=== PATIENT | male | born 1945 | race African-American/Black ===

== ENCOUNTER 2019-07-10 14:42 | Inpatient (IN) ==
[2019-07-10] MEDS ORDERED: Ondansetron 4 MG/2 ML VIAL IVP PRN (16:40)
[2019-07-10] MEDS ORDERED: Naloxone 0.4 MG/ML INJ IVP PRN (16:40)
[2019-07-10] MEDS ORDERED: Acetaminophen 325 MG TABLET PO PRN (17:06)
[2019-07-10] MEDS ORDERED: *HR* HYDROcodone/Acet 5/325 mg TABLET PO PRN (17:06)
[2019-07-10] MEDS ORDERED: Aspirin 325 MG TABLET PO ONE (17:23)
[2019-07-10] MEDS: amLODIPine 5 MG TABLET PO SCH (19:47)
[2019-07-10] MEDS ORDERED: hydroCHLOROthiazide 25 MG TABLET PO SCH (21:00)
[2019-07-10] MEDS ORDERED: lisinopriL 20 MG TABLET PO SCH (21:00)
[2019-07-11 00:55] LABS: Basophils # 0.2 K/mcL (0.0-0.2); Eosinophils # 0.2 K/mcL (0.0-0.6); Eosinophils % 1.2 %; Hemoglobin 14.4 g/dL (12.9-16.9); Immature Granulocytes % 2.3 % (0-4); Lymphocytes # 1.6 K/mcL (0.6-4.6); Lymphocytes % 9.9 %; Mean Corpuscular HGB Conc 32.7 g/dL (31.6-35.5); Mean Corpuscular Hemoglobin 31.1 pg (28.0-33.3); Mean Platelet Volume 11.4 fL (9.4-12.4); Monocytes # 1.2 K/mcL (0.0-1.3); Monocytes % 7.1 %; Platelet Count 241 K/mcL (140-400); Red Blood Count 4.63 M/mcL (4.19-5.50); Red Cell Distribution Width 14.2 % (11.5-14.5); Segmented Neutrophils % 78.5 %; White Blood Count 16.6 K/mcL (4.3-11.1)
[2019-07-11 01:09] LABS: Calcium 8.8 mg/dL (8.6-10.3); Magnesium 2.1 mg/dL (1.6-2.6); Potassium 3.6 mEq/L (3.5-5.1)
[2019-07-11] MEDS: amLODIPine 5 MG TABLET PO SCH (07:32)
[2019-07-11] MEDS: hydrALAZINE 25 MG TABLET PO SCH ×4 (10:21→19:44)
[2019-07-11 10:57] LABS: Bilirubin,Urine Negative (Negative); Blood,Urine Moderate (Negative); Clarity,Urine Clear (Clear); Color,Urine Yellow (Yellow); Glucose,Urine (UA) Normal (Normal); Ketones,Urine Negative (Negative); Leukocyte Esterase,Urine Negative (Negative); Nitrite,Urine Negative (Negative); Protein,Urine >=1000 mg/dL (Neg-Trace); Specific Gravity,Urine 1.015 (1.010-1.025); Urobilinogen,Urine Normal (Normal)
[2019-07-11 11:01] LABS: Sodium, Urine 63.4 mEq/L
[2019-07-11 11:13] LABS: Hyaline Casts,Urine None Seen per lpf (None-Few); RBC,Urine 0-3 per hpf (0-3); Renal Epithelial Cells,Urine Few per hpf (None-Few); Squamous Epithelial Cell,Urine Few per lpf (None-Few); Transitional Epi Cells,Urine Few per hpf (None-Few); WBC,Urine 0-3 per hpf (0-3)
[2019-07-11 11:14] LABS: Bacteria,Urine Few per hpf (None-Few)
[2019-07-11] MEDS: Aspirin Enteric Coated 81 MG Tablet PO SCH (12:19)
[2019-07-12 05:48] LABS: Basophils # 0.1 K/mcL (0.0-0.2); Basophils % 0.9 %; Eosinophils # 0.4 K/mcL (0.0-0.6); Eosinophils % 2.2 %; Hematocrit 42.8 % (37.5-50.1); Hemoglobin 14.4 g/dL (12.9-16.9); Lymphocytes # 1.5 K/mcL (0.6-4.6); Lymphocytes % 9.5 %; Mean Corpuscular HGB Conc 33.6 g/dL (31.6-35.5); Mean Corpuscular Hemoglobin 31.5 pg (28.0-33.3); Mean Corpuscular Volume 93.7 fL (83.0-100.0); Mean Platelet Volume 11.6 fL (9.4-12.4); Monocytes # 1.3 K/mcL (0.0-1.3); Monocytes % 8.6 %; Platelet Count 260 K/mcL (140-400); Red Blood Count 4.57 M/mcL (4.19-5.50); Segmented Neutrophils % 76.8 %; White Blood Count 15.7 K/mcL (4.3-11.1)
[2019-07-12 06:01] LABS: Calcium 8.9 mg/dL (8.6-10.3); Potassium 3.4 mEq/L (3.5-5.1)
[2019-07-12] MEDS: Aspirin Enteric Coated 81 MG Tablet PO SCH (07:27)
[2019-07-12] MEDS: hydrALAZINE 25 MG TABLET PO SCH ×4 (07:27→21:41)
[2019-07-12] MEDS: amLODIPine 5 MG TABLET PO SCH (07:29)
[2019-07-12] MEDS: carvediloL 6.25 MG TABLET PO SCH (17:21)
[2019-07-12] MEDS: Spironolactone 25 MG TABLET PO SCH (17:21)
[2019-07-13 05:38] LABS: Basophils # 0.1 K/mcL (0.0-0.2); Basophils % 1.1 %; Eosinophils # 0.5 K/mcL (0.0-0.6); Eosinophils % 3.5 %; Hematocrit 44.8 % (37.5-50.1); Lymphocytes # 1.5 K/mcL (0.6-4.6); Mean Corpuscular HGB Conc 33.5 g/dL (31.6-35.5); Mean Corpuscular Hemoglobin 31.5 pg (28.0-33.3); Mean Corpuscular Volume 94.1 fL (83.0-100.0); Mean Platelet Volume 11.1 fL (9.4-12.4); Monocytes % 7.7 %; Neutrophils # 9.9 K/mcL (1.6-8.9); Platelet Count 254 K/mcL (140-400); Red Blood Count 4.76 M/mcL (4.19-5.50); Red Cell Distribution Width 14.1 % (11.5-14.5); Segmented Neutrophils % 74.7 %; White Blood Count 13.2 K/mcL (4.3-11.1)
[2019-07-13 05:52] LABS: Calcium 9.1 mg/dL (8.6-10.3); Potassium 3.9 mEq/L (3.5-5.1)
[2019-07-13] MEDS: Aspirin Enteric Coated 81 MG Tablet PO SCH (08:25)
[2019-07-13] MEDS: carvediloL 6.25 MG TABLET PO SCH ×2 (08:25→16:53)
[2019-07-13] MEDS: Spironolactone 25 MG TABLET PO SCH (08:25)
[2019-07-13] MEDS: amLODIPine 5 MG TABLET PO SCH (08:25)
[2019-07-13] MEDS: hydrALAZINE 25 MG TABLET PO SCH ×4 (08:26→20:11)
[2019-07-13] MEDS ORDERED: lisinopriL 20 MG TABLET PO SCH (09:00)
[2019-07-13] MEDS: Isosorbide MONOnitrate (24 HR) 30 MG TAB.ER.24H PO SCH (11:25)
[2019-07-14 08:32] LABS: Basophils # 0.1 K/mcL (0.0-0.2); Basophils % 1.2 %; Eosinophils # 0.4 K/mcL (0.0-0.6); Eosinophils % 3.8 %; Hematocrit 41.3 % (37.5-50.1); Hemoglobin 13.4 g/dL (12.9-16.9); Immature Granulocytes % 2.3 % (0-4); Lymphocytes # 1.3 K/mcL (0.6-4.6); Lymphocytes % 11.5 %; Mean Corpuscular HGB Conc 32.4 g/dL (31.6-35.5); Mean Corpuscular Hemoglobin 30.8 pg (28.0-33.3); Mean Corpuscular Volume 94.9 fL (83.0-100.0); Mean Platelet Volume 11.1 fL (9.4-12.4); Monocytes # 1.1 K/mcL (0.0-1.3); Monocytes % 9.4 %; Platelet Count 242 K/mcL (140-400); Red Blood Count 4.35 M/mcL (4.19-5.50); Red Cell Distribution Width 14.2 % (11.5-14.5); Segmented Neutrophils % 71.8 %; White Blood Count 11.2 K/mcL (4.3-11.1)
[2019-07-14 08:51] LABS: Calcium 8.6 mg/dL (8.6-10.3)
[2019-07-14] MEDS: hydrALAZINE 25 MG TABLET PO SCH ×4 (09:41→22:52)
[2019-07-14] MEDS: amLODIPine 5 MG TABLET PO SCH (09:41)
[2019-07-14] MEDS: Aspirin Enteric Coated 81 MG Tablet PO SCH (09:42)
[2019-07-14] MEDS: Spironolactone 25 MG TABLET PO SCH (09:42)
[2019-07-14] MEDS: carvediloL 6.25 MG TABLET PO SCH ×2 (09:42→16:31)
[2019-07-14] MEDS: Isosorbide MONOnitrate (24 HR) 30 MG TAB.ER.24H PO SCH (09:43)
[2019-07-14 13:00] LABS: Bilirubin,Urine Negative (Negative); Blood,Urine Negative (Negative); Clarity,Urine Clear (Clear); Color,Urine Yellow (Yellow); Glucose,Urine (UA) Normal (Normal); Ketones,Urine Negative (Negative); Leukocyte Esterase,Urine Negative (Negative); Nitrite,Urine Negative (Negative); PH,Urine 5.5 pH Units (5.0-8.0); Protein,Urine >=300 mg/dL (Neg-Trace); Specific Gravity,Urine 1.019 (1.010-1.025); Urobilinogen,Urine Normal (Normal)
[2019-07-14 13:02] LABS: Bacteria,Urine None Seen per hpf (None-Few); Hyaline Casts,Urine None Seen per lpf (None-Few); Squamous Epithelial Cell,Urine Many per lpf (None-Few)
[2019-07-14 14:26] LABS: Protein/Creatinine Ratio,Urine 3.15 mg/mg (0.00-0.20); Sodium, Urine 48.6 mEq/L
[2019-07-15 03:08] LABS: Basophils # 0.2 K/mcL (0.0-0.2); Basophils % 1.4 %; Eosinophils # 0.5 K/mcL (0.0-0.6); Eosinophils % 3.9 %; Hematocrit 42.2 % (37.5-50.1); Hemoglobin 13.6 g/dL (12.9-16.9); Immature Granulocytes % 2.6 % (0-4); Lymphocytes # 1.6 K/mcL (0.6-4.6); Lymphocytes % 12.8 %; Mean Corpuscular HGB Conc 32.2 g/dL (31.6-35.5); Mean Corpuscular Hemoglobin 30.7 pg (28.0-33.3); Mean Corpuscular Volume 95.3 fL (83.0-100.0); Mean Platelet Volume 11.4 fL (9.4-12.4); Monocytes # 1.2 K/mcL (0.0-1.3); Neutrophils # 8.4 K/mcL (1.6-8.9); Platelet Count 249 K/mcL (140-400); Red Blood Count 4.43 M/mcL (4.19-5.50); Red Cell Distribution Width 14.1 % (11.5-14.5); Segmented Neutrophils % 69.3 %; White Blood Count 12.2 K/mcL (4.3-11.1)
[2019-07-15 03:25] LABS: Calcium 8.6 mg/dL (8.6-10.3); Potassium 4.3 mEq/L (3.5-5.1)
[2019-07-15] MEDS: Spironolactone 25 MG TABLET PO SCH (09:15)
[2019-07-15] MEDS: carvediloL 6.25 MG TABLET PO SCH ×2 (09:15→17:29)
[2019-07-15] MEDS: hydrALAZINE 25 MG TABLET PO SCH ×4 (09:15→20:01)
[2019-07-15] MEDS: amLODIPine 5 MG TABLET PO SCH (09:15)
[2019-07-15] MEDS: Isosorbide MONOnitrate (24 HR) 30 MG TAB.ER.24H PO SCH (09:15)
[2019-07-15] MEDS: Aspirin Enteric Coated 81 MG Tablet PO SCH (09:15)
[2019-07-15 15:38] LABS: ANA IgG by ELISA NONE DETECTED (None Detected)
[2019-07-15 16:26] LABS: Serine Protease-3 Antibody 1 AU/mL (0-19)
[2019-07-16 04:59] LABS: Calcium 8.7 mg/dL (8.6-10.3); Potassium 4.3 mEq/L (3.5-5.1)
[2019-07-16 08:57] VITALS: BP 163/83
[2019-07-16] MEDS: Isosorbide MONOnitrate (24 HR) 30 MG TAB.ER.24H PO SCH (09:09)
[2019-07-16] MEDS: Spironolactone 25 MG TABLET PO SCH (09:09)
[2019-07-16] MEDS: amLODIPine 5 MG TABLET PO SCH (09:09)
[2019-07-16] MEDS: carvediloL 6.25 MG TABLET PO SCH (09:09)
[2019-07-16] MEDS: Aspirin Enteric Coated 81 MG Tablet PO SCH (09:09)
[2019-07-16] MEDS: hydrALAZINE 25 MG TABLET PO SCH (09:09)
[2019-07-16 12:58] LABS: Kappa Qnt Free Light Chains 114.06 mg/L (3.30-19.40); Lambda Qnt Free Light Chains 49.73 mg/L (5.71-26.30)
[2019-07-17 00:32] LABS: Alpha 2 Globulin (PEP) 0.95 g/dL (0.48-1.05); Beta Globulin (PEP) 0.74 g/dL (0.48-1.10)
[2019-07-17 10:14] LABS: IFE Reflexed NOT DONE
[2019-07-18 03:41] LABS: Urine Collection Volume RANDOM mL
== END 2019-07-16 11:20 | disposition home or self-care (01) | DRG 280 ==
LOC: 2NNU → SUATTDRO 16:19 → 3ANU 07-12 13:40
PROVIDERS: ADMIT Family Medicine; ATTEND Internal Medicine

== ENCOUNTER 2020-06-26 00:17 | Inpatient (IN) ==
[2020-06-26] MEDS ORDERED: Acetaminophen 325 MG TABLET PO PRN (03:15)
[2020-06-26] MEDS ORDERED: Naloxone 0.4 MG/ML INJ IVP PRN (03:15)
[2020-06-26] MEDS ORDERED: Ondansetron 4 MG/2 ML VIAL IVP PRN (03:15)
[2020-06-26] MEDS: MethylPREDNISolone 40 MG/ML VIAL IVP SCH ×3 (05:34→16:53)
[2020-06-26] MEDS: *HR* Heparin 5,000 UNIT/ML VIAL SQ SCH ×2 (05:35→13:18)
[2020-06-26 05:48] LABS: ABG Base Excess -4 mEq/L (-2 to 3); ABG HCO3 22 mEq/L (21-27); ABG Oxygen Saturation 99 % (95-98); ABG PCO2 43 mmHg (35-45); ABG PH 7.33 pH Units (7.32-7.45); ABG PO2 174 mmHg (85-104); ABG TCO2 24 mEq/L (20-26)
[2020-06-26 05:50] LABS: Basophils # 0.1 K/mcL (0.0-0.2); Basophils % 0.5 %; Hematocrit 41.8 % (37.5-50.1); Hemoglobin 12.6 g/dL (12.9-16.9); Immature Granulocytes % 1.6 % (0-4); Lymphocytes # 0.7 K/mcL (0.6-4.6); Lymphocytes % 3.8 %; Mean Corpuscular HGB Conc 30.1 g/dL (31.6-35.5); Mean Corpuscular Volume 99.5 fL (83.0-100.0); Mean Platelet Volume 10.9 fL (9.4-12.4); Monocytes # 0.7 K/mcL (0.0-1.3); Monocytes % 3.8 %; Platelet Count 238 K/mcL (140-400); Segmented Neutrophils % 90.3 %; White Blood Count 18.9 K/mcL (4.3-11.1)
[2020-06-26 05:57] LABS: INR 1.2; Prothrombin Time 14.2 Seconds (9.4-12.1)
[2020-06-26 06:00] LABS: Activated Partial Thrombo Time 33.6 Seconds (26.0-36.0)
[2020-06-26 06:13] LABS: Albumin 3.6 g/dL (3.5-5.7); Albumin/Globulin Ratio 0.9 (1.1-2.2); Bilirubin,Total 0.6 mg/dL (0.3-1.0); Calcium 9.3 mg/dL (8.6-10.3); Chol/HDL Ratio 4.9 (0-4.9); Globulin 3.8 g/dL (2.4-3.5); Magnesium 2.1 mg/dL (1.6-2.6); Phosphorous 5.8 mg/dL (2.7-4.5); Potassium 5.9 mEq/L (3.5-5.1); Total Protein 7.4 g/dL (6.4-8.9)
[2020-06-26] MEDS: Ipratropium/Albuterol Neb 3 ML IH SCH ×6 (07:24→23:15)
[2020-06-26] MEDS ORDERED: cefTRIAXone 1,000 MG in 0.9 % Sodium Chloride Mini Bag 100 ML IVPB SCH (09:00)
[2020-06-26] MEDS ORDERED: Azithromycin 500 MG in 0.9 % Sodium Chloride 250 ML IVPB SCH (09:00)
[2020-06-26] MEDS ORDERED: cefTRIAXone 1,000 MG in Water for inj. (sterile) 10 ML IVP SCH (10:00)
[2020-06-26] MEDS ORDERED: Insulin Human Regular 10 UNIT in 0.9 % Sodium Chloride 10 ML IV ONE (12:38)
[2020-06-26] MEDS ORDERED: *HR* Dextrose 50 % in Water (Syg) 50 ML SYRINGE IVP ONE (12:39)
[2020-06-26] MEDS ORDERED: *HR* Dextrose 50 % in Water (Vial) 50 ML VIAL IVP ONE (13:15)
[2020-06-26] MEDS: Aspirin 81 MG TAB.CHEW PO SCH (13:18)
[2020-06-26 14:10] LABS: Bacteria,Urine Few per hpf (None-Few); Bilirubin,Urine Negative (Negative); Blood,Urine Small (Negative); Clarity,Urine Clear (Clear); Color,Urine Light-Yellow (Yellow); Glucose,Urine (UA) 50 mg/dL (Normal); Ketones,Urine Negative (Negative); Leukocyte Esterase,Urine Negative (Negative); Mucus,Urine Few per lpf (None-Few); Nitrite,Urine Negative (Negative); Protein,Urine >=300 mg/dL (Neg-Trace); RBC,Urine 0-3 per hpf (0-3); Specific Gravity,Urine 1.017 (1.010-1.025); Squamous Epithelial Cell,Urine Few per hpf (None-Few); Urobilinogen,Urine Normal (Normal); WBC,Urine 0-3 per hpf (0-3)
[2020-06-26] MEDS: Doxycycline 100 MG in 0.9 % Sodium Chloride Mini Bag 100 ML IVPB SCH (16:54)
[2020-06-27] MEDS: MethylPREDNISolone 40 MG/ML VIAL IVP SCH ×4 (00:24→17:54)
[2020-06-27] MEDS: *HR* Heparin 5,000 UNIT/ML VIAL SQ SCH ×4 (00:27→21:21)
[2020-06-27 02:35] LABS: Hematocrit 35.9 % (37.5-50.1); Hemoglobin 10.9 g/dL (12.9-16.9); Mean Corpuscular HGB Conc 30.4 g/dL (31.6-35.5); Mean Corpuscular Hemoglobin 29.9 pg (28.0-33.3); Mean Corpuscular Volume 98.4 fL (83.0-100.0); Mean Platelet Volume 11.6 fL (9.4-12.4); Platelet Count 222 K/mcL (140-400); Red Blood Count 3.65 M/mcL (4.19-5.50); Red Cell Distribution Width 13.9 % (11.5-14.5); White Blood Count 18.1 K/mcL (4.3-11.1)
[2020-06-27 03:10] LABS: Calcium 8.7 mg/dL (8.6-10.3); Potassium 5.4 mEq/L (3.5-5.1)
[2020-06-27 03:11] LABS: Albumin 3.3 g/dL (3.5-5.7); Phosphorous 5.5 mg/dL (2.7-4.5)
[2020-06-27] MEDS: Ipratropium/Albuterol Neb 3 ML IH SCH ×3 (03:31→11:16)
[2020-06-27] MEDS: Doxycycline 100 MG in 0.9 % Sodium Chloride Mini Bag 100 ML IVPB SCH ×2 (06:24→17:54)
[2020-06-27] MEDS: Aspirin 81 MG TAB.CHEW PO SCH (09:33)
[2020-06-27] MEDS: cefTRIAXone 2,000 MG in Water for inj. (sterile) 20 ML IVP SCH (09:33)
[2020-06-27 15:20] LABS: Adenovirus Not Detected (Not Detect); Bordetella Pertussis Not Detected (Not Detect); Chlamydophila pneumoniae Not Detected (Not Detect); Coronavirus 229E Not Detected (Not Detect); Coronavirus HKU1 Not Detected (Not Detect); Coronavirus NL63 Not Detected (Not Detect); Coronavirus OC43 Not Detected (Not Detect); Human Metapneumovirus Not Detected (Not Detect); Human Rhinovirus/Enterovirus Not Detected (Not Detect); Influenza A Subtype 2009 H1 Not Detected (Not Detect); Influenza B Not Detected (Not Detect); Mycoplasma pneumoniae Not Detected (Not Detect); Parainfluenza Virus 1 Not Detected (Not Detect); Parainfluenza Virus 2 Not Detected (Not Detect); Parainfluenza Virus 3 Not Detected (Not Detect); Parainfluenza Virus 4 Not Detected (Not Detect); Respiratory Syncytial Virus Not Detected (Not Detect); SARS-CoV-2 Not Detected (Not Detect)
[2020-06-27] MEDS ORDERED: Ipratropium/Albuterol Neb 3 ML IH PRN (15:29)
[2020-06-27] MEDS: carvediloL 6.25 MG TABLET PO SCH (17:54)
[2020-06-28 01:19] LABS: Basophils # 0.1 K/mcL (0.0-0.2); Basophils % 0.3 %; Eosinophils % 0.1 %; Hematocrit 38.7 % (37.5-50.1); Immature Granulocytes % 2.3 % (0-4); Lymphocytes # 0.7 K/mcL (0.6-4.6); Mean Corpuscular Hemoglobin 29.9 pg (28.0-33.3); Mean Corpuscular Volume 96.5 fL (83.0-100.0); Mean Platelet Volume 11.8 fL (9.4-12.4); Monocytes % 4.7 %; Platelet Count 206 K/mcL (140-400); Red Blood Count 4.01 M/mcL (4.19-5.50); Red Cell Distribution Width 13.9 % (11.5-14.5); Segmented Neutrophils % 89.6 %; White Blood Count 21.6 K/mcL (4.3-11.1)
[2020-06-28 01:36] LABS: Calcium 9.3 mg/dL (8.6-10.3); Potassium 5.9 mEq/L (3.5-5.1)
[2020-06-28 01:38] LABS: Neutrophils # 19.4 K/mcL (1.6-8.9)
[2020-06-28 01:39] LABS: Platelet Estimate Normal (Normal)
[2020-06-28] MEDS: MethylPREDNISolone 40 MG/ML VIAL IVP SCH ×2 (05:36→07:31)
[2020-06-28] MEDS: Doxycycline 100 MG in 0.9 % Sodium Chloride Mini Bag 100 ML IVPB SCH (05:37)
[2020-06-28] MEDS: *HR* Heparin 5,000 UNIT/ML VIAL SQ SCH ×3 (05:46→20:11)
[2020-06-28] MEDS: carvediloL 6.25 MG TABLET PO SCH ×2 (08:05→16:03)
[2020-06-28] MEDS ORDERED: predniSONE 20 MG TABLET PO SCH (09:00)
[2020-06-28] MEDS ORDERED: 0.9 % Sodium Chloride 250 ML IVC PRN (09:51)
[2020-06-28] MEDS ORDERED: 0.9 % Sodium Chloride 1,000 ML PRIME SCH (10:00)
[2020-06-28] MEDS ORDERED: 0.9 % Sodium Chloride 1,000 ML ONE (10:04)
[2020-06-28] MEDS: Aspirin 81 MG TAB.CHEW PO SCH (10:45)
[2020-06-28] MEDS: calcitrioL 0.25 MCG CAPSULE PO SCH (10:46)
[2020-06-28] MEDS: cefTRIAXone 2,000 MG in Water for inj. (sterile) 20 ML IVP SCH (10:46)
[2020-06-28 10:47] LABS: Hepatitis B Surface Antibody 3.25 mIU/mL
[2020-06-28] MEDS: amLODIPine 5 MG TABLET PO SCH (10:57)
[2020-06-28 10:58] LABS: Hepatitis B Surface Antigen Nonreactive (Nonreactive)
[2020-06-28] MEDS: Doxycycline 100 MG CAPSULE PO SCH (20:11)
[2020-06-29] MEDS: *HR* Heparin 5,000 UNIT/ML VIAL SQ SCH ×3 (05:08→20:43)
[2020-06-29] MEDS ORDERED: 0.9 % Sodium Chloride 250 ML IVC PRN (06:59)
[2020-06-29 07:20] LABS: Calcium 8.8 mg/dL (8.6-10.3); Phosphorous 4.9 mg/dL (2.7-4.5); Potassium 5.3 mEq/L (3.5-5.1)
[2020-06-29] MEDS ORDERED: predniSONE 20 MG TABLET PO SCH (09:00)
[2020-06-29 10:06] LABS: Basophils # 0.1 K/mcL (0.0-0.2); Basophils % 0.6 %; Eosinophils % 0.1 %; Hematocrit 36.4 % (37.5-50.1); Hemoglobin 11.4 g/dL (12.9-16.9); Immature Granulocytes % 3.6 % (0-4); Lymphocytes # 1.8 K/mcL (0.6-4.6); Lymphocytes % 9.4 %; Mean Corpuscular HGB Conc 31.3 g/dL (31.6-35.5); Mean Corpuscular Hemoglobin 29.8 pg (28.0-33.3); Mean Platelet Volume 11.6 fL (9.4-12.4); Monocytes % 10.5 %; Neutrophils # 14.4 K/mcL (1.6-8.9); Platelet Count 241 K/mcL (140-400); Red Blood Count 3.83 M/mcL (4.19-5.50); Red Cell Distribution Width 13.8 % (11.5-14.5); Segmented Neutrophils % 75.8 %; White Blood Count 19.1 K/mcL (4.3-11.1)
[2020-06-29] MEDS: Aspirin 81 MG TAB.CHEW PO SCH (11:20)
[2020-06-29] MEDS: carvediloL 6.25 MG TABLET PO SCH ×2 (11:21→17:14)
[2020-06-29] MEDS: Doxycycline 100 MG CAPSULE PO SCH ×2 (11:21→20:44)
[2020-06-29] MEDS: cefTRIAXone 2,000 MG in Water for inj. (sterile) 20 ML IVP SCH (11:21)
[2020-06-29] MEDS: calcitrioL 0.25 MCG CAPSULE PO SCH (11:21)
[2020-06-29] MEDS: amLODIPine 5 MG TABLET PO SCH (11:21)
[2020-06-29] MEDS ORDERED: Cefdinir 300 MG CAPSULE PO SCH (21:00)
[2020-06-30 03:48] LABS: Basophils % 0.2 %; Eosinophils % 0.1 %; Hematocrit 38.4 % (37.5-50.1); Immature Granulocytes % 6.3 % (0-4); Lymphocytes # 1.9 K/mcL (0.6-4.6); Lymphocytes % 8.8 %; Mean Corpuscular HGB Conc 31.3 g/dL (31.6-35.5); Mean Corpuscular Hemoglobin 30.2 pg (28.0-33.3); Mean Corpuscular Volume 96.7 fL (83.0-100.0); Mean Platelet Volume 11.3 fL (9.4-12.4); Monocytes # 2.3 K/mcL (0.0-1.3); Monocytes % 10.7 %; Neutrophils # 16.1 K/mcL (1.6-8.9); Platelet Count 255 K/mcL (140-400); Red Blood Count 3.97 M/mcL (4.19-5.50); Red Cell Distribution Width 13.8 % (11.5-14.5); Segmented Neutrophils % 73.9 %; White Blood Count 21.8 K/mcL (4.3-11.1)
[2020-06-30 04:09] LABS: Calcium 8.4 mg/dL (8.6-10.3); Potassium 4.8 mEq/L (3.5-5.1)
[2020-06-30 04:56] LABS: Anisocytosis 1+ (Not Present)
[2020-06-30 04:57] LABS: Platelet Estimate Normal (Normal)
[2020-06-30] MEDS: *HR* Heparin 5,000 UNIT/ML VIAL SQ SCH ×3 (06:33→20:55)
[2020-06-30] MEDS: predniSONE 20 MG TABLET PO SCH (08:10)
[2020-06-30] MEDS: calcitrioL 0.25 MCG CAPSULE PO SCH (08:10)
[2020-06-30] MEDS: Cefdinir 300 MG CAPSULE PO SCH (08:10)
[2020-06-30] MEDS: carvediloL 6.25 MG TABLET PO SCH ×2 (08:10→16:38)
[2020-06-30] MEDS: Aspirin 81 MG TAB.CHEW PO SCH (08:10)
[2020-06-30] MEDS: Doxycycline 100 MG CAPSULE PO SCH ×2 (08:11→20:55)
[2020-06-30] MEDS ORDERED: 0.9 % Sodium Chloride 250 ML IVC PRN (12:02)
[2020-06-30] MEDS: amLODIPine 5 MG TABLET PO SCH (16:38)
[2020-07-01] MEDS: *HR* Heparin 5,000 UNIT/ML VIAL SQ SCH ×3 (05:36→20:06)
[2020-07-01] MEDS: carvediloL 6.25 MG TABLET PO SCH ×2 (08:01→16:34)
[2020-07-01] MEDS: predniSONE 20 MG TABLET PO SCH (08:01)
[2020-07-01] MEDS: Cefdinir 300 MG CAPSULE PO SCH (08:01)
[2020-07-01] MEDS: calcitrioL 0.25 MCG CAPSULE PO SCH (08:01)
[2020-07-01] MEDS: amLODIPine 5 MG TABLET PO SCH (08:01)
[2020-07-01] MEDS: Aspirin 81 MG TAB.CHEW PO SCH (08:01)
[2020-07-01] MEDS: Doxycycline 100 MG CAPSULE PO SCH (08:02)
[2020-07-01 09:45] LABS: Basophils % 0.2 %; Eosinophils # 0.2 K/mcL (0.0-0.6); Eosinophils % 1.1 %; Hematocrit 38.1 % (37.5-50.1); Hemoglobin 11.8 g/dL (12.9-16.9); Immature Granulocytes % 9.9 % (0-4); Lymphocytes # 2.9 K/mcL (0.6-4.6); Lymphocytes % 13.9 %; Mean Corpuscular Hemoglobin 29.8 pg (28.0-33.3); Mean Corpuscular Volume 96.2 fL (83.0-100.0); Mean Platelet Volume 11.7 fL (9.4-12.4); Monocytes # 1.5 K/mcL (0.0-1.3); Monocytes % 7.2 %; Neutrophils # 14.3 K/mcL (1.6-8.9); Nucleated Red Blood Cells 0.1 /100 WBC (0); Platelet Count 233 K/mcL (140-400); Red Blood Count 3.96 M/mcL (4.19-5.50); Red Cell Distribution Width 14.1 % (11.5-14.5); Segmented Neutrophils % 67.7 %; White Blood Count 21.1 K/mcL (4.3-11.1)
[2020-07-01 10:56] LABS: Calcium 8.6 mg/dL (8.6-10.3); Potassium 4.7 mEq/L (3.5-5.1)
[2020-07-01 19:04] LABS: Magnesium 1.7 mg/dL (1.6-2.6); Phosphorous 4.9 mg/dL (2.7-4.5)
[2020-07-01] MEDS: Magnesium Oxide 400 MG TABLET PO SCH (20:05)
[2020-07-02 01:53] LABS: Hematocrit 38.4 % (37.5-50.1); Hemoglobin 12.1 g/dL (12.9-16.9); Mean Corpuscular HGB Conc 31.5 g/dL (31.6-35.5); Mean Corpuscular Hemoglobin 30.3 pg (28.0-33.3); Mean Platelet Volume 11.6 fL (9.4-12.4); Platelet Count 237 K/mcL (140-400); Red Cell Distribution Width 14.1 % (11.5-14.5)
[2020-07-02 02:08] LABS: Lymphocytes # 2.5 K/mcL (0.6-4.6); Monocytes # 0.5 K/mcL (0.0-1.3); Platelet Estimate Normal (Normal); Poikilocytosis 1+ (Not Present)
[2020-07-02 02:09] LABS: Toxic Granulation Present (Not Present)
[2020-07-02 02:11] LABS: Calcium 8.7 mg/dL (8.6-10.3); Magnesium 1.9 mg/dL (1.6-2.6); Potassium 4.8 mEq/L (3.5-5.1)
[2020-07-02] MEDS: *HR* Heparin 5,000 UNIT/ML VIAL SQ SCH ×3 (05:05→21:06)
[2020-07-02] MEDS: Magnesium Oxide 400 MG TABLET PO SCH ×2 (07:57→21:05)
[2020-07-02] MEDS: calcitrioL 0.25 MCG CAPSULE PO SCH (07:57)
[2020-07-02] MEDS: amLODIPine 5 MG TABLET PO SCH (07:57)
[2020-07-02] MEDS: carvediloL 6.25 MG TABLET PO SCH ×2 (07:57→17:51)
[2020-07-02] MEDS: Aspirin 81 MG TAB.CHEW PO SCH (07:57)
[2020-07-02] MEDS: Cefdinir 300 MG CAPSULE PO SCH (07:57)
[2020-07-02] MEDS ORDERED: predniSONE 20 MG TABLET PO SCH (09:00)
[2020-07-02 09:18] LABS: Bacteria,Urine Few per hpf (None-Few); Bilirubin,Urine Negative (Negative); Blood,Urine Trace (Negative); Clarity,Urine Clear (Clear); Color,Urine Light-Yellow (Yellow); Glucose,Urine (UA) Normal (Normal); Ketones,Urine Negative (Negative); Leukocyte Esterase,Urine Negative (Negative); Nitrite,Urine Negative (Negative); PH,Urine 6.5 pH Units (5.0-8.0); Protein,Urine 200 mg/dL (Neg-Trace); RBC,Urine 0-3 per hpf (0-3); Specific Gravity,Urine 1.014 (1.010-1.025); Squamous Epithelial Cell,Urine Few per hpf (None-Few); Urobilinogen,Urine Normal (Normal); WBC,Urine 0-3 per hpf (0-3)
[2020-07-03 02:50] LABS: Hematocrit 37.9 % (37.5-50.1); Mean Corpuscular HGB Conc 31.7 g/dL (31.6-35.5); Mean Corpuscular Hemoglobin 30.2 pg (28.0-33.3); Mean Corpuscular Volume 95.2 fL (83.0-100.0); Mean Platelet Volume 10.9 fL (9.4-12.4); Platelet Count 228 K/mcL (140-400); Red Blood Count 3.98 M/mcL (4.19-5.50); Red Cell Distribution Width 14.1 % (11.5-14.5); White Blood Count 21.5 K/mcL (4.3-11.1)
[2020-07-03 03:18] LABS: Calcium 8.7 mg/dL (8.6-10.3); Potassium 5.1 mEq/L (3.5-5.1)
[2020-07-03] MEDS: *HR* Heparin 5,000 UNIT/ML VIAL SQ SCH ×3 (06:11→21:30)
[2020-07-03] MEDS ORDERED: 0.9 % Sodium Chloride 1,000 ML ONE (06:32)
[2020-07-03] MEDS ORDERED: 0.9 % Sodium Chloride 250 ML IVC PRN (07:26)
[2020-07-03] MEDS ORDERED: 0.9 % Sodium Chloride 1,000 ML PRIME SCH (07:30)
[2020-07-03] MEDS: carvediloL 6.25 MG TABLET PO SCH ×2 (12:52→15:54)
[2020-07-03] MEDS: Cefdinir 300 MG CAPSULE PO SCH (13:00)
[2020-07-03] MEDS: Magnesium Oxide 400 MG TABLET PO SCH ×2 (13:01→21:30)
[2020-07-03] MEDS: Aspirin 81 MG TAB.CHEW PO SCH (13:01)
[2020-07-03] MEDS: amLODIPine 5 MG TABLET PO SCH (13:01)
[2020-07-03] MEDS: calcitrioL 0.25 MCG CAPSULE PO SCH (13:02)
[2020-07-04 04:01] LABS: Hematocrit 40.3 % (37.5-50.1); Hemoglobin 12.9 g/dL (12.9-16.9); Mean Corpuscular Hemoglobin 30.5 pg (28.0-33.3); Mean Corpuscular Volume 95.3 fL (83.0-100.0); Mean Platelet Volume 11.5 fL (9.4-12.4); Platelet Count 230 K/mcL (140-400); Red Blood Count 4.23 M/mcL (4.19-5.50); Red Cell Distribution Width 14.2 % (11.5-14.5); White Blood Count 21.3 K/mcL (4.3-11.1)
[2020-07-04 04:23] LABS: Calcium 8.8 mg/dL (8.6-10.3)
[2020-07-04] MEDS: *HR* Heparin 5,000 UNIT/ML VIAL SQ SCH ×2 (06:29→16:31)
[2020-07-04] MEDS ORDERED: Spironolactone 25 MG TABLET PO SCH (09:00)
[2020-07-04] MEDS: Aspirin 81 MG TAB.CHEW PO SCH (09:30)
[2020-07-04] MEDS: Magnesium Oxide 400 MG TABLET PO SCH (09:30)
[2020-07-04] MEDS: calcitrioL 0.25 MCG CAPSULE PO SCH (09:30)
[2020-07-04] MEDS: amLODIPine 5 MG TABLET PO SCH (09:30)
[2020-07-04] MEDS: carvediloL 6.25 MG TABLET PO SCH ×2 (09:30→16:31)
[2020-07-04] MEDS: Cefdinir 300 MG CAPSULE PO SCH (09:30)
[2020-07-04 16:15] VITALS: BP 114/64
== END 2020-07-04 18:28 | disposition home or self-care (01) | DRG 871 ==
LOC: 2NNU → SUATTDRO 15:10 → 2ANU 20:46
PROVIDERS: ADMIT Student in an Organized Health Care Education/Training Program; ATTEND Pharmacist